=== PATIENT | female | born 1990 | race Two or more races ===

== ENCOUNTER 2017-04-06 05:55 | Day surgery (SDC) | payer OTHER ==
[~2017-04-06 05:55] MED LIST: CEFTIN250 MG PO; CLEOCIN HCL300 MG PO; DOLOGEN CAPLET1 EACH PO; EXCEDRIN MIGRAI1 TAB PO; FIORICET 50-321 EACH PO; FLONASE16 G1 NS; GILPHEX TR TAB1 EACH PO; GILTUSS TR TAB1 EACH PO; HYZAAR 100-251 EACH PO; HYZAAR 100/25 T1 TAB; HYZAAR 100/25 T1 TAB PO; IMODIUM A-D2 MG PO; INTESTINEX1 CA1 PO; INTESTINEX1 CAP PO; IRON1TAB4 PO; KETO10TA2 PO; MOBIC15 MG PO; OMEPRAZOLE40 MG PO; PEPCID40 MG PO; PHENERGAN25 MG PO; PROTONIX40 MG PO; RANITIDINE HCL300 M1 PO; ROBINUL FORTE2 MG PO; SEPTRA DS TABLE1 TAB PO; VOLTAREM 50 MG PO; ZANTAC300 MG PO; ZITHROMAX TRI-500 MG PO; ZOFRAN4 MG PO; ZYRTEC10 MG PO
[2017-04-06] MEDS ORDERED: LEVOTHYROXINE25 MCG PO (09:05)
== END 2017-04-06 10:55 | disposition home or self-care (01) ==
LOC: CIR.AMB 05:55
DX: N92.1 Excessive and frequent menstruation with irregular cycle (principal)

== ENCOUNTER → 2017-04-14 | Emergency (ER) | payer OTHER ==
[~2017-04-14] VITALS: Ht 167.6 cm; Wt 170.1 kg
[~2017-04-14] MED LIST changes: +LEVOTHYROXINE25 MCG PO; +MUCINEX DM ER1 EAC1 PO; +OSEL75CA PO; +TESSALON PERLE100 MG PO
== END | disposition home or self-care (01) ==
LOC: ER 23:08
DX: J11.1 Influenza due to unidentified influenza virus with other respiratory manifestations (principal)

== ENCOUNTER → 2017-05-14 | Outpatient (CLI) | payer OTHER ==
[~2017-05-14] VITALS: Ht 152.4 cm; Wt 174.2 kg
== END | disposition home or self-care (01) ==
LOC: PPHC 08:18
DX: M25.562 Pain in left knee (principal); M54.5 Low back pain

== ENCOUNTER → 2017-05-21 08:59 | Outpatient (CLI) | payer OTHER | END | disposition home or self-care (01) | LOC: LAB 08:59 | DX: E03.8 Other specified hypothyroidism (principal) ==

== ENCOUNTER → 2017-05-29 | Outpatient (CLI) | payer OTHER ==
[~2017-05-29] VITALS: Ht 152.4 cm; Wt 174.2 kg
== END | disposition home or self-care (01) ==
LOC: PPHC 09:43
DX: M25.562 Pain in left knee (principal); M25.561 Pain in right knee; Z00.8 Encounter for other general examination

== ENCOUNTER 2017-06-30 10:25 | Outpatient (CLI) | payer OTHER | END 2017-06-30 10:34 | disposition home or self-care (01) | LOC: LAB 10:25 | DX: E03.8 Other specified hypothyroidism (principal); E11.65 Type 2 diabetes mellitus with hyperglycemia; R50.9 Fever, unspecified ==

== ENCOUNTER → 2017-06-30 | Outpatient (CLI) | payer OTHER | END | disposition home or self-care (01) | LOC: PPHC 08:44 | DX: B34.9 Viral infection, unspecified (principal) ==

== ENCOUNTER 2017-07-17 23:12 | Emergency (ER) | payer OTHER ==
[~2017-07-17] VITALS: Ht 170.2 cm; Wt 170.1 kg
[2017-07-17] MEDS ORDERED: SYNTHROID50 MCG (23:21)
[2017-07-18] MEDS ORDERED: ACIDOPHILUS1 EAC3 PO (08:54)
== END 2017-07-18 | disposition home or self-care (01) ==
LOC: ER 23:12
DX: K58.8 Other irritable bowel syndrome (principal)

== ENCOUNTER 2017-09-17 08:30 | Outpatient (CLI) | payer OTHER ==
[~2017-09-17 08:30] MED LIST changes: +ACIDOPHILUS1 EAC3 PO; +SYNTHROID50 MCG
== END 2017-09-17 08:42 | disposition home or self-care (01) ==
LOC: SONOGRAMA 08:30
DX: N92.5 Other specified irregular menstruation (principal)

== ENCOUNTER 2017-09-22 10:43 | Day surgery (SDC) | payer OTHER ==
[~2017-09-22] VITALS: Ht 170.2 cm; Wt 165.6 kg
== END 2017-09-22 20:00 | disposition home or self-care (01) ==
LOC: ER 10:43 → CIR.AMB 15:00 → EDSTATUS 15:00 → SEC-K 15:52 → O/R 15:52 → ER 15:52 → O/R 16:46 → SEC-K 16:46 → O/R 16:46 → CIR.AMB 20:00 → O/R 20:00
DX: N84.0 Polyp of corpus uteri (principal)

== ENCOUNTER → 2017-10-08 10:01 | Outpatient (CLI) | payer OTHER | END | disposition home or self-care (01) | LOC: LAB 10:01 | DX: E03.8 Other specified hypothyroidism (principal); E11.65 Type 2 diabetes mellitus with hyperglycemia; E78.00 Pure hypercholesterolemia, unspecified ==

== ENCOUNTER 2017-12-28 22:47 | Emergency (ER) | payer OTHER ==
[~2017-12-28] VITALS: Ht 170.2 cm; Wt 163.3 kg
== END 2017-12-29 02:00 | disposition home or self-care (01) ==
LOC: ER 22:47
DX: G43.809 Other migraine, not intractable, without status migrainosus (principal)

== ENCOUNTER 2018-01-19 09:50 | Outpatient (CLI) | payer OTHER | END 2018-01-19 09:58 | disposition home or self-care (01) | LOC: LAB 09:50 | DX: K52.89 Other specified noninfective gastroenteritis and colitis (principal); E66.01 Morbid (severe) obesity due to excess calories; K51.50 Left sided colitis without complications; R19.5 Other fecal abnormalities; R10.84 Generalized abdominal pain; R19.7 Diarrhea, unspecified; E03.8 Other specified hypothyroidism ==

== ENCOUNTER → 2018-01-25 07:17 | Outpatient (CLI) | payer OTHER | END | disposition home or self-care (01) | LOC: LAB 07:17 | DX: K52.89 Other specified noninfective gastroenteritis and colitis (principal); E66.01 Morbid (severe) obesity due to excess calories; K51.50 Left sided colitis without complications; R19.5 Other fecal abnormalities; R10.84 Generalized abdominal pain; R19.2 Visible peristalsis ==

== ENCOUNTER 2018-02-19 12:15 | Outpatient (CLI) | payer OTHER | END 2018-02-19 12:19 | disposition home or self-care (01) | LOC: LAB 12:15 | DX: N91.2 Amenorrhea, unspecified (principal) ==

== ENCOUNTER 2018-03-26 07:15 | Outpatient (CLI) | payer OTHER | END 2018-03-26 08:18 | disposition home or self-care (01) | LOC: LAB 07:15 | DX: N39.0 Urinary tract infection, site not specified (principal); D51.0 Vitamin B12 deficiency anemia due to intrinsic factor deficiency; D64.89 Other specified anemias; D50.8 Other iron deficiency anemias; R82.79 Other abnormal findings on microbiological examination of urine ==

== ENCOUNTER 2018-03-26 07:17 | Outpatient (CLI) | payer OTHER | END 2018-03-26 08:18 | disposition home or self-care (01) | LOC: RAD 07:17 | DX: M54.5 Low back pain (principal); M54.6 Pain in thoracic spine ==

== ENCOUNTER 2018-05-24 06:59 | Outpatient (CLI) | payer OTHER | END 2018-05-24 07:17 | disposition home or self-care (01) | LOC: LAB 06:59 | DX: M25.561 Pain in right knee (principal); N39.0 Urinary tract infection, site not specified; E03.8 Other specified hypothyroidism; B99.8 Other infectious disease ==

== ENCOUNTER 2018-06-06 22:20 | Emergency (ER) | payer OTHER ==
[~2018-06-06] VITALS: Ht 170.2 cm; Wt 170.1 kg
[2018-06-07] MEDS ORDERED: PEPCID40 MG PO (06:34)
[2018-06-07] MEDS ORDERED: LEVSIN/SL0.125 MG SL (06:34)
== END 2018-06-07 06:41 | disposition home or self-care (01) ==
LOC: ER 22:20
DX: R10.31 Right lower quadrant pain (principal)

== ENCOUNTER 2018-08-12 22:50 | Emergency (ER) | payer OTHER ==
[~2018-08-12] VITALS: Ht 170.2 cm; Wt 174.6 kg
[~2018-08-12 22:50] MED LIST changes: +LEVSIN/SL0.125 MG SL
[2018-08-13] MEDS ORDERED: MUPIROCIN15 GM TOP (06:17)
[2018-08-13] MEDS ORDERED: INTESTINEX680 M1 PO (06:17)
[2018-08-13] MEDS ORDERED: DOXYCYCLINE HY100 M2 PO (06:17)
== END 2018-08-13 06:28 | disposition home or self-care (01) ==
LOC: ER 22:50
DX: N61.0 Mastitis without abscess (principal)

== ENCOUNTER 2018-10-03 22:45 | Emergency (ER) | payer OTHER ==
[~2018-10-03] VITALS: Ht 170.2 cm; Wt 170.1 kg
[~2018-10-03 22:45] MED LIST changes: +DOXYCYCLINE HY100 M2 PO; +INTESTINEX680 M1 PO; +MUPIROCIN15 GM TOP
[2018-10-03] MEDS ORDERED: SYNTHROID75 MCG PO (23:14)
[2018-10-03] MEDS ORDERED: DICY20TA PO (23:14)
== END 2018-10-04 08:24 | disposition home or self-care (01) ==
LOC: ER 22:45
DX: S30.0XXA Contusion of lower back and pelvis, initial encounter (principal); W18.39XA Other fall on same level, initial encounter; Y93.89 Activity, other specified; Y92.098 Other place in other non-institutional residence as the place of occurrence of the external cause; Y99.8 Other external cause status

== ENCOUNTER 2018-10-21 06:59 | Outpatient (CLI) | payer OTHER ==
[~2018-10-21 06:59] MED LIST changes: +DICY20TA PO; +SYNTHROID75 MCG PO
== END 2018-10-21 07:05 | disposition home or self-care (01) ==
LOC: LAB 06:59
DX: E03.8 Other specified hypothyroidism (principal); D50.8 Other iron deficiency anemias; N83.209 Unspecified ovarian cyst, unspecified side; E83.51 Hypocalcemia; N92.5 Other specified irregular menstruation; R19.7 Diarrhea, unspecified; K58.0 Irritable bowel syndrome with diarrhea; Z00.00 Encounter for general adult medical examination without abnormal findings; R10.84 Generalized abdominal pain

== ENCOUNTER 2018-11-26 07:15 | Outpatient (CLI) | payer OTHER | END 2018-11-26 08:58 | disposition home or self-care (01) | LOC: LAB 07:15 | DX: N83.209 Unspecified ovarian cyst, unspecified side (principal) ==

== ENCOUNTER 2019-02-06 22:36 | Emergency (ER) | payer OTHER ==
[~2019-02-06] VITALS: Ht 170.2 cm; Wt 174.6 kg
[2019-02-07] MEDS ORDERED: ALLEGRA-D 12 H1 EACH PO (06:24)
[2019-02-07] MEDS ORDERED: ZYNCOF 20-400120 ML PO (06:24)
== END 2019-02-07 06:27 | disposition home or self-care (01) ==
LOC: ER 22:36
DX: J06.9 Acute upper respiratory infection, unspecified (principal)

== ENCOUNTER 2019-04-29 08:37 | Outpatient (CLI) | payer OTHER ==
[~2019-04-29 08:37] MED LIST changes: +ALLEGRA-D 12 H1 EACH PO; +ZYNCOF 20-400120 ML PO
== END 2019-04-29 08:39 | disposition home or self-care (01) ==
LOC: SONOGRAMA 08:37
DX: N92.0 Excessive and frequent menstruation with regular cycle (principal)

== ENCOUNTER 2019-05-10 23:05 | Emergency (ER) | payer OTHER ==
[~2019-05-10] VITALS: Ht 170.2 cm; Wt 181.4 kg
[2019-05-10] MEDS ORDERED: SPRINTEC 28 DA1 EACH (23:45)
[2019-05-10] MEDS ORDERED: BENTYL10 MG/1 ML (23:45)
== END 2019-05-11 07:33 | disposition home or self-care (01) ==
LOC: ER 23:05
DX: G43.909 Migraine, unspecified, not intractable, without status migrainosus (principal)

== ENCOUNTER 2019-05-16 06:44 | Outpatient (CLI) | payer OTHER ==
[~2019-05-16 06:44] MED LIST changes: +BENTYL10 MG/1 ML; +SPRINTEC 28 DA1 EACH
== END 2019-05-16 06:49 | disposition home or self-care (01) ==
LOC: LAB 06:44
DX: E03.8 Other specified hypothyroidism (principal); E11.9 Type 2 diabetes mellitus without complications; E54 Ascorbic acid deficiency; E55.9 Vitamin D deficiency, unspecified

== ENCOUNTER 2019-05-16 07:31 | Outpatient (CLI) | payer OTHER | END 2019-05-16 10:51 | disposition home or self-care (01) | LOC: SONOGRAMA 07:31 | DX: R76.0 Raised antibody titer (principal) ==

== ENCOUNTER 2019-05-26 23:04 | Emergency (ER) | payer OTHER ==
[~2019-05-26] VITALS: Ht 170.2 cm; Wt 181.4 kg
== END 2019-05-27 05:36 | disposition home or self-care (01) ==
LOC: ER 23:04
DX: N93.8 Other specified abnormal uterine and vaginal bleeding (principal); G44.209 Tension-type headache, unspecified, not intractable

== ENCOUNTER → 2019-08-04 06:55 | Outpatient (CLI) | payer OTHER | END | disposition home or self-care (01) | LOC: LAB 06:55 | DX: R19.5 Other fecal abnormalities (principal); K58.0 Irritable bowel syndrome with diarrhea ==

== ENCOUNTER 2019-12-09 11:06 | Emergency (ER) | payer OTHER ==
[~2019-12-09] VITALS: Ht 170.2 cm; Wt 181.4 kg
[2019-12-09] MEDS ORDERED: ZANAFLEX4 M1 PO (13:48)
[2019-12-09] MEDS ORDERED: KETO10TA2 PO (13:48)
== END 2019-12-09 14:00 | disposition home or self-care (01) ==
LOC: ER 11:06
DX: S80.02XA Contusion of left knee, initial encounter (principal); S80.01XA Contusion of right knee, initial encounter; W18.09XA Striking against other object with subsequent fall, initial encounter; Y93.89 Activity, other specified; Y92.89 Other specified places as the place of occurrence of the external cause; Y99.8 Other external cause status

== ENCOUNTER 2020-02-09 14:55 | Emergency (ER) | payer OTHER ==
[~2020-02-09] VITALS: Ht 170.2 cm; Wt 181.4 kg
[~2020-02-09 14:55] MED LIST changes: +ZANAFLEX4 M1 PO
[2020-02-09] MEDS ORDERED: MEDROXYPROGESTE10 MG PO (19:02)
== END 2020-02-09 19:26 | disposition home or self-care (01) ==
LOC: ER 14:55
DX: N93.8 Other specified abnormal uterine and vaginal bleeding (principal); R10.2 Pelvic and perineal pain; Z03.818 Encounter for observation for suspected exposure to other biological agents ruled out

== ENCOUNTER 2022-03-06 16:09 | Emergency (ER) | payer OTHER ==
[~2022-03-06] VITALS: Ht 170.2 cm; Wt 181.4 kg
[~2022-03-06 16:09] MED LIST changes: +MEDROXYPROGESTE10 MG PO
== END 2022-03-06 20:40 | disposition home or self-care (01) ==
LOC: ER 16:09
DX: M79.645 Pain in left finger(s) (principal); Z88.8 Allergy status to other drugs, medicaments and biological substances

== ENCOUNTER 2022-03-09 08:38 | Emergency (ER) | payer OTHER ==
[~2022-03-09] VITALS: Ht 170.2 cm; Wt 181.4 kg
== END 2022-03-09 11:13 | disposition home or self-care (01) ==
LOC: ER 08:38
DX: S99.921A Unspecified injury of right foot, initial encounter (principal); X58.XXXA Exposure to other specified factors, initial encounter; Y93.9 Activity, unspecified; Y92.9 Unspecified place or not applicable

== ENCOUNTER 2022-08-08 07:37 | Emergency (ER) | payer OTHER ==
[~2022-08-08] VITALS: Ht 170.2 cm; Wt 181.4 kg
[2022-08-08] MEDS ORDERED: COZAAR100 MG PO (07:50)
[2022-08-08] MEDS ORDERED: GLUMETZA500 MG (07:56)
[2022-08-08] MEDS ORDERED: DICLOFENAC SODI75 MG PO (11:10)
== END 2022-08-08 11:20 | disposition home or self-care (01) ==
LOC: ER 07:37
DX: S89.81XA Other specified injuries of right lower leg, initial encounter (principal); S99.821A Other specified injuries of right foot, initial encounter; W19.XXXA Unspecified fall, initial encounter; Y93.89 Activity, other specified; Y92.89 Other specified places as the place of occurrence of the external cause; Y99.8 Other external cause status; Z91.018 Allergy to other foods; Z88.8 Allergy status to other drugs, medicaments and biological substances

== ENCOUNTER 2022-08-28 10:09 | Outpatient (CLI) | payer OTHER ==
[~2022-08-28 10:09] MED LIST changes: +COZAAR100 MG PO; +DICLOFENAC SODI75 MG PO; +GLUMETZA500 MG
== END 2022-08-28 13:51 | disposition home or self-care (01) ==
LOC: SONOGRAMA 10:09
DX: D25.1 Intramural leiomyoma of uterus (principal); N80.00 Endometriosis of the uterus, unspecified

== ENCOUNTER 2022-10-13 06:38 | Emergency (ER) | payer OTHER ==
[~2022-10-13] VITALS: Ht 170.2 cm; Wt 172.4 kg
== END 2022-10-13 09:58 | disposition home or self-care (01) ==
LOC: ER 06:38
DX: S90.01XA Contusion of right ankle, initial encounter (principal); W18.30XA Fall on same level, unspecified, initial encounter; Y93.9 Activity, unspecified; Y92.019 Unspecified place in single-family (private) house as the place of occurrence of the external cause; Y99.9 Unspecified external cause status

== ENCOUNTER 2024-03-13 10:56 | Outpatient (CLI) | payer OTHER | END 2024-03-13 11:04 | disposition home or self-care (01) | LOC: SONOGRAMA 10:56 | DX: N92.5 Other specified irregular menstruation (principal) ==

== ENCOUNTER 2024-05-15 10:15 | Outpatient (CLI) | payer OTHER ==
[2024-05-16] MEDS ORDERED: CEPHALEXIN750 MG PO (10:14)
[2024-05-16] MEDS ORDERED: PEPCID AC20 MG PO (10:14)
== END 2024-05-15 10:19 | disposition home or self-care (01) ==
LOC: SONOGRAMA 10:15
DX: R10.2 Pelvic and perineal pain (principal)

== ENCOUNTER 2024-05-16 06:20 | Emergency (ER) | payer OTHER ==
[~2024-05-16] VITALS: Ht 170.2 cm; Wt 183.7 kg
[2024-05-16] MEDS ORDERED: CLINDAMYCIN PHOSPHATE 150 MG/ML (900mg) IV STA (07:10)
[2024-05-16] MEDS ORDERED: CLINDAMYCIN PHOSPHATE 150 MG/ML (900mg) ONE (07:20)
[2024-05-16 08:18] LABS: HEMATOCRIT 36.2 % (36.0-45.00); HEMOGLOBIN 11.4 g/dL (12.0-15.00); MEAN CELL VOLUME 70.7 fL (80.00-100.00); MEAN CORPUSCULAR HEMOGLOBIN 22.3 pg (27.00-32.0); MEAN CORPUSCULAR HGB CONC 31.5 g/dl (32.0-36.0); PLATELET COUNT 445 K/uL (150-450); RED BLOOD COUNT 5.12 M/uL (4.00-6.00); RED CELL DISTRIBUTION WIDTH 17.2 % (11.5-14.5)
[2024-05-16 08:50] LABS: ERYTHROCYTE SEDIMENTATION RATE 76 mm/hr
[2024-05-16 09:58] LABS: CALCIUM 9.4 mg/dL (8.5-10.1); GFR 64.25; POTASSIUM 4.36 mEq/L (3.5-5.1)
[2024-05-16] MEDS ORDERED: CEPHALEXIN750 MG PO (10:14)
[2024-05-16] MEDS ORDERED: PEPCID AC20 MG PO (10:14)
== END 2024-05-16 11:05 | disposition home or self-care (01) ==
LOC: ER 06:23
DX: N61.1 Abscess of the breast and nipple (principal); L02.221 Furuncle of abdominal wall; I10 Essential (primary) hypertension; E11.9 Type 2 diabetes mellitus without complications; Z79.84 Long term (current) use of oral hypoglycemic drugs; Z88.8 Allergy status to other drugs, medicaments and biological substances; Z91.018 Allergy to other foods

== ENCOUNTER 2024-09-08 08:54 | Emergency (ER) | payer OTHER ==
[~2024-09-08] VITALS: Ht 170.2 cm; Wt 181.4 kg
[~2024-09-08 08:54] MED LIST changes: +CEPHALEXIN750 MG PO; +PEPCID AC20 MG PO
[2024-09-08] MEDS ORDERED: SYNTHROID88 MCG PO (09:08)
[2024-09-08] MEDS ORDERED: LABETALOL HCL100 MG PO (09:13)
[2024-09-08] MEDS ORDERED: ALDACTONE100 MG PO (09:13)
[2024-09-08] MEDS ORDERED: ATORVASTATIN CA40 MG PO (09:13)
[2024-09-08 10:30] LABS: BASO % 0.3 % (0.1-1.2); EOS # 0.15 (0.04-0.54); EOS % 1.5 % (0.7-7.0); HEMATOCRIT 36.5 % (34.1-44.9); HEMOGLOBIN 10.9 g/dL (11.2-15.7); LYMPH # 1.78 (1.18-3.74); LYMPH % 17.9 % (19.3-53.1); MEAN CORPUSCULAR HEMOGLOBIN 21.5 pg (25.6-32.2); MONO # 0.44 (0.24-0.82); MONO % 4.4 % (4.7-12.5); NEUT # 7.48 (1.56-6.13); NEUT % 75.4 % (34.0-71.1); PLATELET COUNT 417 K/uL (163-369); RED BLOOD COUNT 5.07 M/uL (3.93-5.22); RED CELL DISTRIBUTION WIDTH 16.4 % (11.6-14.4)
[2024-09-08 10:55] LABS: ALBUMIN 3.3 gm/dL (3.4-5.0); BILIRUBIN TOTAL 0.46 mg/dL (0.3-1.2); CALCIUM 9.1 mg/dL (8.5-10.1); CREATININE SERUM 1.37 mg/dL (0.55-1.02); GFR 44.4; GLOBULINA 4.4 G/DL (2.4-3.5); POTASSIUM 4.35 mEq/L (3.5-5.1); TOTAL PROTEIN 7.7 gm/dL (6.4-8.2)
[2024-09-08 11:12] LABS: URINE APPEARANCE Clear; URINE BILIRRUBIN Negative (NEGATIVE); URINE BLOOD Negative; URINE COLOR Yellow; URINE GLUCOSE Negative (NEGATIVE); URINE KETONE Negative (NEGATIVE); URINE LEUKOCYTE Trace; URINE NITRATE Negative; URINE PROTEIN Negative (NEGATIVE); URINE UROBILINOGEN 0.2 E.U./dl
[2024-09-08 11:14] LABS: URINE BACTERIA 526.2 uL (0.0-1933); URINE EPITHELIAL CELLS 20.8 uL (0.0-38.8); URINE RBC 4.8 uL (0.0-20.8); URINE WBC 34.5 uL (0.0-23.2)
[2024-09-08 11:16] LABS: URINE CAST 1.03 uL (0.0-1.40)
[2024-09-08] MEDS ORDERED: CEFTRIAXONE SODIUM 1,000 MG VIAL IM ONE (12:00)
[2024-09-08] MEDS ORDERED: KETOROLAC TROMETHAMINE 60 MG VIAL IM ONE ×2 (12:00→12:01)
[2024-09-08] MEDS ORDERED: CEFTRIAXONE SODIUM 1,000 MG VIAL ONE (12:01)
[2024-09-08] MEDS ORDERED: PYRIDIUM200 MG PO (12:11)
[2024-09-08] MEDS ORDERED: MACROBID 100 M100 MG PO (12:11)
== END 2024-09-08 12:30 | disposition home or self-care (01) ==
LOC: ER 08:54
PROVIDERS: Preventive Medicine Public Health & General Preventive Medicine
DX: N39.0 Urinary tract infection, site not specified (principal); M54.50 Low back pain, unspecified; I10 Essential (primary) hypertension; E11.9 Type 2 diabetes mellitus without complications; Z79.84 Long term (current) use of oral hypoglycemic drugs; Z88.8 Allergy status to other drugs, medicaments and biological substances; Z91.018 Allergy to other foods

== ENCOUNTER 2024-09-21 10:35 | Emergency (ER) | payer OTHER ==
[~2024-09-21] VITALS: Ht 170.2 cm; Wt 183.7 kg
[~2024-09-21 10:35] MED LIST changes: +ALDACTONE100 MG PO; +ATORVASTATIN CA40 MG PO; +LABETALOL HCL100 MG PO; +MACROBID 100 M100 MG PO; +PYRIDIUM200 MG PO; +SYNTHROID88 MCG PO
[2024-09-21] MEDS ORDERED: DEXAMETHASONE SODIUM PHOSPHATE 4 MG/ML VIAL ONE (11:15)
[2024-09-21] MEDS ORDERED: DIPHENHYDRAMINE HCL 50 MG/ML VIAL 1ML IM ONE (11:15)
[2024-09-21] MEDS ORDERED: DEXAMETHASONE SODIUM PHOSPHATE 4 MG/ML VIAL IM ONE (11:15)
[2024-09-21] MEDS ORDERED: DIPHENHYDRAMINE HCL 50 MG/ML VIAL 1ML ONE (11:15)
[2024-09-21 11:51] LABS: BASO % 0.4 % (0.1-1.2); EOS # 0.21 (0.04-0.54); EOS % 2.5 % (0.7-7.0); LYMPH # 1.47 (1.18-3.74); LYMPH % 17.2 % (19.3-53.1); MEAN CORPUSCULAR HEMOGLOBIN 21.9 pg (25.6-32.2); MONO # 0.51 (0.24-0.82); NEUT # 6.29 (1.56-6.13); NEUT % 73.5 % (34.0-71.1); PLATELET COUNT 403 K/uL (163-369); RED BLOOD COUNT 5.03 M/uL (3.93-5.22); RED CELL DISTRIBUTION WIDTH 17.3 % (11.6-14.4)
== END 2024-09-21 13:48 | disposition home or self-care (01) ==
LOC: ER 10:53
PROVIDERS: General Practice
DX: T78.1XXA Other adverse food reactions, not elsewhere classified, initial encounter (principal); X58.XXXA Exposure to other specified factors, initial encounter; Z88.8 Allergy status to other drugs, medicaments and biological substances; Z91.018 Allergy to other foods; I10 Essential (primary) hypertension; R73.03 Prediabetes; E03.9 Hypothyroidism, unspecified

== ENCOUNTER 2024-11-01 10:13 | Emergency (ER) | payer OTHER ==
[~2024-11-01] VITALS: Ht 170.2 cm; Wt 190.5 kg
[2024-11-01] MEDS ORDERED: ACETAMINOPHEN 500 MG GEL..CAP PO ONE ×2 (10:35→10:45)
[2024-11-01] MEDS ORDERED: IPRATROPIUM BROMIDE 0.5 MG/2.5 ML AMPUL.NEB IH ONE (10:35)
[2024-11-01] MEDS ORDERED: GUAIFENESIN 200 MG/10 ML BLIST.PACK PO ONE ×2 (10:36→10:45)
[2024-11-01] MEDS ORDERED: IPRATROPIUM BROMIDE 0.5 MG/2.5 ML AMPUL.NEB IH SCH (10:45)
[2024-11-01 11:54] LABS: COVID-19 AG NEGATIVE (NEGATIVE)
== END 2024-11-01 12:50 | disposition home or self-care (01) ==
LOC: ER 10:13
PROVIDERS: General Practice
DX: B34.9 Viral infection, unspecified (principal); Z20.822 Contact with and (suspected) exposure to COVID-19; E11.9 Type 2 diabetes mellitus without complications; Z79.84 Long term (current) use of oral hypoglycemic drugs; I10 Essential (primary) hypertension; Z88.8 Allergy status to other drugs, medicaments and biological substances; Z91.018 Allergy to other foods

== ENCOUNTER 2025-03-31 08:04 | Emergency (ER) | payer OTHER ==
[~2025-03-31] VITALS: Ht 170.2 cm; Wt 198.7 kg
[2025-03-31] MEDS ORDERED: FAMOTIDINE/PF 20 MG/2 ML VIAL ONE (08:27)
[2025-03-31] MEDS ORDERED: CEFTRIAXONE SODIUM 1,000 MG VIAL ONE (08:27)
[2025-03-31] MEDS ORDERED: CEFTRIAXONE SODIUM 1,000 MG VIAL IM ONE (08:30)
[2025-03-31] MEDS ORDERED: BUTALB/ACETAMINOPHEN/CAFFEINE 1 TAB TABLET PO ONE ×2 (08:30)
[2025-03-31] MEDS ORDERED: BENZONATATE 200 MG CAPSULE PO ONE (08:30)
[2025-03-31] MEDS ORDERED: FAMOTIDINE/PF 20 MG/2 ML VIAL IV PUSH ONE (08:30)
[2025-03-31 09:04] LABS: BASO % 0.4 % (0.1-1.2); EOS # 0.09 (0.04-0.54); EOS % 1.3 % (0.7-7.0); LYMPH # 0.18 (1.18-3.74); LYMPH % 2.6 % (19.3-53.1); MEAN PLATELET VOLUME 8.30 fl (9.4-12.4); MONO # 0.44 (0.24-0.82); MONO % 6.4 % (4.7-12.5); NEUT # 6.09 (1.56-6.13); NEUT % 88.3 % (34.0-71.1); RED CELL DISTRIBUTION WIDTH 16.4 % (11.6-14.4)
[2025-03-31 09:32] LABS: COVID-19 AG NEGATIVE (NEGATIVE)
[2025-03-31] MEDS ORDERED: BENZONATATE200 M1 PO (09:56)
[2025-03-31] MEDS ORDERED: AZITHROMYCIN500 MG PO (09:56)
== END 2025-03-31 10:07 | disposition home or self-care (01) ==
LOC: ER 08:05
PROVIDERS: General Practice
DX: B34.8 Other viral infections of unspecified site (principal); E11.9 Type 2 diabetes mellitus without complications; Z79.84 Long term (current) use of oral hypoglycemic drugs; I10 Essential (primary) hypertension; G47.39 Other sleep apnea; Z20.822 Contact with and (suspected) exposure to COVID-19; Z87.09 Personal history of other diseases of the respiratory system; Z88.8 Allergy status to other drugs, medicaments and biological substances; Z91.018 Allergy to other foods